=== PATIENT | male | born 1945 | race Caucasian/White ===

== ENCOUNTER 2018-02-20 20:30 | Inpatient (IN) | payer MEDICARE ==
[~2018-02-20] VITALS: Ht 185.4 cm; Wt 81.0 kg
[2018-02-20 20:37] VITALS: BP 119/71; PULSE 65; RESP 20; TEMP 97.4; O2SAT 94
[2018-02-20] MEDS ORDERED: METO50TA PO (20:54)
[2018-02-20] MEDS ORDERED: PLAV75TA29 PO (20:54)
[2018-02-20] MEDS ORDERED: LISI10TA3 PO (20:54)
[2018-02-20] MEDS ORDERED: NEXI40CA PO (20:54)
[2018-02-20] MEDS ORDERED: ASPI-516 CHEW (20:54)
[2018-02-20] MEDS ORDERED: SIMV40TA PO (20:54)
--- NOTE | 2018-02-20 21:29 | PD ---
HPI Chief Complaint: Hip Injury Time Seen by Provider: 21:16 Travel History International Travel<30 days: No Contact w/Intl Traveler<30days: No Traveled to known affect area: No History of Present Illness HPI 72-year-old male complains of left wrist pain and left hip pain. Patient states that he fell this evening. Patient denies loss of consciousness. Patient denies any headache on neck pain. Patient, and sharp pain localized to left wrist and left hip. Patient denies any chest pain or shortness of breath. Patient denies abdominal pain. Patient states that the left wrist pain and left hip pain is sharp pain. Patient states that the pain is worse with movement of the wrist and the hip joint. On a scale of 1-10 the pain is a 9. Patient states he has an abrasion to left forearm. Patient is up-to-date with TD booster. Patient started post left shoulder and left knee surgery in the past. 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 Patient is on Plavix. Last Plavix dose was this morning. Patient has history hypertension and hyperlipidemia. PFSH Past Medical History Hx Anticoagulant Therapy: Yes (PLAVIX) Cardiac Catheterization: Yes High Cholesterol: Yes Coronary Artery Disease: Yes GERD: Yes Hypertension: Yes Medical other: Yes Tetanus Vaccination: < 5 Years Influenza Vaccination: No Past Surgical History Cardiac Surgery: Yes (ENCARDECTOMY) Joint Replacement: Yes (LEFT KNEE/SHOULDER) Pacemaker: Yes Other Surgery: Yes Social History Alcohol Use: Yes (RARE) Tobacco Use: Yes (1/2 PPD) Substance Use: No Allergies-Medications (Allergen,Severity, Reaction): Coded Allergies: Penicillins (Verified Allergy, Unknown, " I BLOW UP ", 02/20/18) Uncoded Allergies: ADHESIVES (Adverse Reaction, Unknown, SKIN PEELING, 02/20/18) Reported Meds & Prescriptions Reported Meds & Active Scripts Active Reported Nexium (Esomeprazole DR) 40 Mg Capdr 40 Mg PO DAILY Aspirin 81 Mg Chew 81 Mg CHEW DAILY Lisinopril 10 Mg Tab 15 Mg PO DAILY Simvastatin 40 Mg Tab 40 Mg PO HS Metoprolol Tartrate 50 Mg Tab 50 Mg PO DIRECTED Plavix (Clopidogrel Bisulfate) 75 Mg Tab 75 Mg PO DAILY Review of Systems General / Constitutional: No: Fever Eyes: No: Visual changes HENT: No: Headaches Cardiovascular: No: Chest Pain or Discomfort Respiratory: No: Shortness of Breath Gastrointestinal: No: Abdominal Pain Genitourinary: No: Dysuria Musculoskeletal: Positive: Pain Skin: No Rash Neurologic: No: Weakness Psychiatric: No: Depression Endocrine: No: Polydipsia Hematologic/Lymphatic: No: Easy Bruising Physical Exam Narrative GENERAL: Well-nourished, well-developed patient. SKIN: Focused skin assessment warm/dry. HEAD: Normocephalic. EYES: No scleral icterus. No injection or drainage. NECK: Supple, trachea midline. No JVD or lymphadenopathy. CARDIOVASCULAR: Regular rate and rhythm without murmurs, gallops, or rubs. RESPIRATORY: Breath sounds equal bilaterally. No accessory muscle use. GASTROINTESTINAL: Abdomen soft, non-tender, nondistended. MUSCULOSKELETAL: patient has moderate tenderness in palpation of left wrist. Full range of motion of the fingers. Patient has moderate tenderness in palpation of the anterior aspect of the left hip joint. Limited range of motion the left hip secondary to pain. Sensory motor function distally intact. BACK: Nontender without obvious deformity. No CVA tenderness. Neurologic exam normal. Data Data Last Documented VS Vital Signs Date Time Temp Pulse Resp B/P (MAP) Pulse Ox O2 Delivery O2 Flow Rate FiO2 02/20/18 20:47 Room Air 02/20/18 20:37 97.4 65 20 119/71 (87) 94 Orders Orders Hip, Uni(Ap&Lat) W Ap Pelvis (02/20/18 21:21) Wrist, Complete ([id number]) (02/20/18 21:21) [facility] Medical Decision Making Medical Screen Exam Complete: Yes Emergency Medical Condition: Yes Interpretation(s) 22:01 PM. X-ray left hip show mildly displaced left femoral neck fracture. X- ray left wrist show possible dorsal triquetral avulsion fracture. Differential Diagnosis Differential diagnoses including sprain, fracture, dislocation. Narrative Course 72-year-old male with injury to left wrist and left hip. Status post fall. Normal saline solution 100 cc an hour. Diagnosis Primary Impression: Fracture of femoral neck, left Qualified Codes: S72.002A - Fracture of unspecified part of neck of left femur , initial encounter for closed fracture Additional Impression: Fracture of left carpal bone Qualified Codes: S62.115A - Nondisplaced fracture of triquetrum [cuneiform] bone, left wrist, initial encounter for closed fracture Admitting Information Admitting Physician Requests: Admit Ariel Green MD Feb 20, 2018 21:29
--- NOTE | 2018-02-20 21:57 | RADRPT ---
EXAM DATE/TIME: 02/20/2018 21:32 [facility] COMPARISON: No previous studies available for comparison. INDICATIONS : Left hip pain post fall. MEDICAL HISTORY : None. SURGICAL HISTORY : None. ENCOUNTER: Initial ACUITY: 1 day PAIN SCORE: 10/10 LOCATION: Left pelvis FINDINGS: Examination of the left hip was performed with AP Pelvis. There is a mildly displaced left femoral ne ck fracture. No dislocation. No other fractures are seen. CONCLUSION: 1. Mildly displaced left femoral neck fracture. Kenji Ace MD on February 20, 2018 at 21:51 Board Certified Radiologist. This report was verified electronically.
--- NOTE | 2018-02-20 21:59 | RADRPT ---
EXAM DATE/TIME: 02/20/2018 21:32 [facility] COMPARISON: No previous studies available for comparison. INDICATIONS : Left wrist pain post fall. MEDICAL HISTORY : None. SURGICAL HISTORY : None. ENCOUNTER: Initial ACUITY: 1 day PAIN SCORE: 4/10 LOCATION: Left upper extremity FINDINGS: On the lateral view there is a probable small avulsed bone fragment dorsally possibly of the triquetr um. No soft tissue swelling. No other fractures are seen. CONCLUSION: 1. Probable dorsal triquetral avulsion fracture only seen on the lateral view. Kenji Ace MD on February 20, 2018 at 21:55 Board Certified Radiologist. This report was verified electronically.
[2018-02-20] MEDS ORDERED: SODIUM CHLOR 0.9% 1000 ML INJ 1,000 ML IV SCH (22:15)
[2018-02-20] MEDS ORDERED: ONDANSETRON HCL 4 MG/2 ML VIAL IV PUSH ONE (22:15)
[2018-02-20] MEDS ORDERED: MORPHINE SULFATE 2 MG/ML SYRINGE IV PUSH ONE (22:15)
[2018-02-20 22:20] VITALS: O2SAT 95
[2018-02-20] MEDS ORDERED: BISACODYL 10 MG SUPP RECTAL PRN (22:30)
[2018-02-20] MEDS ORDERED: ACETAMINOPHEN 325 MG TAB PO PRN (22:30)
[2018-02-20] MEDS ORDERED: MAGNESIUM HYDROXIDE SUSP 30 ML CUP PO PRN (22:30)
[2018-02-20] MEDS ORDERED: ONDANSETRON HCL 4 MG/2 ML VIAL IVP PRN (22:30)
[2018-02-20] MEDS ORDERED: ACETAMINOPHEN/HYDROcodone 325 MG/5 MG TAB PO PRN (22:30)
[2018-02-20] MEDS ORDERED: LACTULOSE SYRUP 20 GM/30 ML CUP PO PRN (22:30)
[2018-02-20] MEDS ORDERED: SODIUM CHLORIDE 0.9% FLUSH 10 ML FLUSH IV FLUSH PRN (22:30)
[2018-02-20] MEDS ORDERED: SENNOSIDES 8.6 MG TAB PO PRN (22:30)
--- NOTE | 2018-02-20 22:34 | RADRPT ---
EXAM DATE/TIME: 02/20/2018 22:18 [facility] COMPARISON: No previous studies available for comparison. INDICATIONS : Evaluate for pneumonia, pneumothorax, or communicable disease. Pre op left hip. MEDICAL HISTORY : None. SURGICAL HISTORY : Pacemaker. Left total shoulder replacement ENCOUNTER: Initial ACUITY: 1 day PAIN SCORE: 9/10 LOCATION: Bilateral chest FINDINGS: A single view of the chest demonstrates the lungs to be symmetrically aerated without evidence of mas s, infiltrate or effusion. The cardiomediastinal contours are unremarkable except tortuous aorta. Pa cer leads in right atrium and right ventricle. Previous left shoulder joint replacement. CONCLUSION: 1. No acute findings. Pacer leads in right atrium and right ventricle. Kenji Ace MD on February 20, 2018 at 22:32 Board Certified Radiologist. This report was verified electronically.
[2018-02-20 22:35] VITALS: BP 182/81; PULSE 66; RESP 16; O2SAT 95
[2018-02-20 22:38] LABS: CHLORIDE 110 MEQ/L (98-107); SODIUM (NA) 142 MEQ/L (136-145)
[2018-02-20] MEDS: SODIUM CHLOR 0.9% 1000 ML INJ 1,000 ML IV SCH (22:38)
[2018-02-20 22:39] LABS: AUTOMATED NEUTROPHIL # 12.9 TH/MM3 (1.8-7.7); BASOPHIL # 0.4 TH/MM3 (0-0.2); EOSINOPHIL % 0.3 % (0.0-4.0); HEMATOCRIT 42.7 % (39.0-51.0); HEMOGLOBIN 14.6 GM/DL (13.0-17.0); LYMPH % 4.1 % (9.0-44.0); LYMPHOCYTE # 0.6 TH/MM3 (1.0-4.8); MEAN CELL VOLUME 89.9 FL (80.0-100.0); MEAN CORPUSCULAR HEMOGLOBIN 30.8 PG (27.0-34.0); MEAN CORPUSCULAR HGB CONC 34.2 % (32.0-36.0); MONO % 3.3 % (0.0-8.0); MONOCYTE # 0.5 TH/MM3 (0-0.9); NEUT % 89.3 % (16.0-70.0); PLATELET COUNT 170 TH/MM3 (150-450); RED BLOOD COUNT 4.75 MIL/MM3 (4.50-5.90); RED CELL DISTRIBUTION WIDTH 13.2 % (11.6-17.2); WHITE BLOOD COUNT 14.4 TH/MM3 (4.0-11.0)
[2018-02-20 22:43] LABS: ALBUMIN 3.5 GM/DL (3.4-5.0); BICARBONATE 25.1 MEQ/L (21.0-32.0); BLOOD UREA NITROGEN 24 MG/DL (7-18); GLUCOSE,RANDOM 175 MG/DL (74-106)
[2018-02-20 22:44] LABS: PROTHROMBIN TIME - PATIENT 10.4 SEC (9.8-11.6)
[2018-02-20 22:46] LABS: ALT (GPT) 20 U/L (12-78); AST (GOT) 17 U/L (15-37); GLOMERULAR FILTRATION RATE 59 ML/MIN (>89)
[2018-02-20 22:48] LABS: TOTAL BILIRUBIN ADULT 0.2 MG/DL (0.2-1.0); TOTAL PROTEIN 7.6 GM/DL (6.4-8.2)
[2018-02-20 22:49] LABS: ALKALINE PHOSPHATASE 145 U/L (45-117)
[2018-02-20 23:02] VITALS: BP 157/78; PULSE 60; RESP 16; O2SAT 94
[2018-02-21] MEDS ORDERED: MORPHINE SULFATE 2 MG/ML SYRINGE IV PUSH ONE (00:45)
[2018-02-21 01:00] LABS: BILIRUBIN, URINE NEG (NEG); BLOOD, URINE NEG (NEG); GLUCOSE,URINE NEG (NEG); KETONE, URINE NEG (NEG); NITRITE,URINE NEG (NEG); PH, URINE 5.5 (5.0-8.5); URINE COLOR YELLOW (YELLW/STRAW); URINE LEUKOCYTE ESTERASE NEG (NEG)
[2018-02-21 01:05] LABS: RBC, URINE 0-2 /hpf (0-3); SQUAMOUS EPITHELIAL CELL URINE 0-5 /hpf (0-5); WBC, URINE 0-2 /hpf (0-5)
[2018-02-21 01:10] VITALS: BP 156/80; PULSE 64; RESP 18; TEMP 97.6; O2SAT 96
[2018-02-21] MEDS: MORPHINE SULFATE 4 MG/ML INJ IV PUSH PRN ×5 (02:28→20:02)
[2018-02-21 02:35] VITALS: BP 148/70; PULSE 62; RESP 16; TEMP 97.2; O2SAT 94
--- NOTE | 2018-02-21 03:27 | HHI.HP ---
[facility] Primary Care Physician Non-Staff Admission Diagnosis Fracture left femoral neck. Evulsion fracture left carpal bone Diagnoses: Chief Complaint: Left hip and left wrist pain Travel History International Travel<30 Days: No Contact w/Intl Traveler <30 Da: No Traveled to Known Affected Are: No History of Present Illness 72-year-old male with a history of hyperlipidemia, GERD, bradycardia status post pacemaker and hypertension presented to the ED with complaints of left hip and left wrist pain status post fall. He states he was playing outside with his granddaughter and he tripped and fell landing on his left hip and wrist. He states the hip and wrist pain is throbbing, intermittent, 8/10, no radiation or associated symptoms, worse with movement better with morphine. He denies any chest pain, sob, fever or chills. Past Family Social History Past Medical History Hypertension Hyperlipidemia GERD Bradycardia Past Surgical History Left shoulder repair Left knee repair Endarterectomy Pacemaker Reported Medications Reported Meds & Active Scripts Active Reported Nexium (Esomeprazole DR) 40 Mg Capdr 40 Mg PO DAILY Aspirin 81 Mg Chew 81 Mg CHEW DAILY Lisinopril 10 Mg Tab 15 Mg PO DAILY Simvastatin 40 Mg Tab 40 Mg PO HS Metoprolol Tartrate 50 Mg Tab 50 Mg PO DIRECTED Plavix (Clopidogrel Bisulfate) 75 Mg Tab 75 Mg PO DAILY Allergies: Coded Allergies: Penicillins (Verified Allergy, Unknown, " I BLOW UP ", 02/20/18) Uncoded Allergies: ADHESIVES (Adverse Reaction, Unknown, SKIN PEELING, 02/20/18) Active Ordered Medications Current Medications Medications (Trade) Dose Ordered Sig/Reyes Route Start Time Stop Time Status Last Admin Sodium Chloride 1,000 ml @ 100 mls/hr Q10H IV 02/20/18 22:17 02/20/18 22:38 (NS Flush) 2 ml UNSCH PRN IV FLUSH 02/20/18 22:30 02/21/18 02:28 (NS Flush) 2 ml BID IV FLUSH 02/21/18 09:00 (Zofran Inj) 4 mg Q6H PRN IVP 02/20/18 22:30 (Tylenol) 650 mg Q6H PRN PO 02/20/18 22:30 ([place] 5-325 Mg) 1 tab Q4H PRN PO 02/20/18 22:30 (Morphine Inj) 2 mg Q3H PRN IV PUSH 02/20/18 22:30 02/21/18 02:28 (Melody-Colace) 1 tab BID PO 02/21/18 09:00 (Milk Of Magnesia Liq) 30 ml Q12H PRN PO 02/20/18 22:30 (Senokot) 17.2 mg Q12H PRN PO 02/20/18 22:30 (Dulcolax Supp) 10 mg DAILY PRN RECTAL 02/20/18 22:30 (Lactulose Liq) 30 ml DAILY PRN PO 02/20/18 22:30 (Lopressor) 50 mg DAILY PO 02/21/18 09:00 (Protonix) 40 mg DAILY PO 02/21/18 09:00 (Pravachol) 80 mg HS PO 02/21/18 21:00 Family History Patient denies any family history Social History Tobacco use: 1/2 PPD Alcohol use: rarely Illicit drug use: denies Physical Exam Vital Signs Vital Signs Date Time Temp Pulse Resp B/P (MAP) Pulse Ox O2 Delivery O2 Flow Rate FiO2 02/21/18 02:35 97.2 62 16 148/70 (96) 94 02/21/18 01:25 02/21/18 01:10 97.6 64 18 156/80 (105) 96 Room Air 02/21/18 01:00 18 02/21/18 00:11 16 02/20/18 23:16 Room Air 02/20/18 23:02 60 16 157/78 (104) 94 Room Air 02/20/18 22:35 66 16 182/81 (114) 95 Room Air 02/20/18 22:20 95 Room Air 02/20/18 20:47 Room Air 02/20/18 20:37 97.4 65 20 119/71 (87) 94 Physical Exam GENERAL: This is a well-nourished, well-developed patient, in no apparent distress. SKIN: No rashes, ecchymoses or lesions. Cool and dry. HEAD: Atraumatic. Normocephalic. EYES: Pupils equal round and reactive. ENT: Nose without bleeding, purulent drainage or septal hematoma. CARDIOVASCULAR: Regular rate and rhythm without murmurs, gallops, or rubs. RESPIRATORY: Clear to auscultation. Breath sounds equal bilaterally. No wheezes , rales, or rhonchi. GASTROINTESTINAL: Abdomen soft, non-tender, nondistended. MUSCULOSKELETAL: Left lower extremity and left wrist tender. NEUROLOGICAL: Awake and alert. Motor and sensory grossly within normal limits. Normal speech. Laboratory Laboratory Tests Test 02/20/18 22:24 02/21/18 00:45 White Blood Count 14.4 Red Blood Count 4.75 Hemoglobin 14.6 Hematocrit 42.7 Mean Corpuscular Volume 89.9 Mean Corpuscular Hemoglobin 30.8 Mean Corpuscular Hemoglobin Concent 34.2 Red Cell Distribution Width 13.2 Platelet Count 170 Mean Platelet Volume 9.0 Neutrophils (%) (Auto) 89.3 Lymphocytes (%) (Auto) 4.1 Monocytes (%) (Auto) 3.3 Eosinophils (%) (Auto) 0.3 Basophils (%) (Auto) 3.0 Neutrophils # (Auto) 12.9 Lymphocytes # (Auto) 0.6 Monocytes # (Auto) 0.5 Eosinophils # (Auto) 0.0 Basophils # (Auto) 0.4 CBC Comment DIFF FINAL Differential Comment Prothrombin Time 10.4 Prothromb Time International Ratio 1.0 Activated Partial Thromboplast Time 24.9 Blood Urea Nitrogen 24 Creatinine 1.20 Random Glucose 175 Total Protein 7.6 Albumin 3.5 Calcium Level 9.0 Alkaline Phosphatase 145 Aspartate Amino Transf (AST/SGOT) 17 Alanine Aminotransferase (ALT/SGPT) 20 Total Bilirubin 0.2 Sodium Level 142 Potassium Level 4.0 Chloride Level 110 Carbon Dioxide Level 25.1 Anion Gap 7 Estimat Glomerular Filtration Rate 59 Urine Color YELLOW Urine Turbidity CLEAR Urine pH 5.5 Urine Specific [place] 1.025 Urine Protein NEG Urine Glucose (UA) NEG Urine Ketones NEG Urine Occult Blood NEG Urine Nitrite NEG Urine Bilirubin NEG Urine Urobilinogen 0.2 Urine Leukocyte Esterase NEG Urine RBC 0-2 Urine WBC 0-2 Urine Squamous Epithelial Cells 0-5 Urine Bacteria NONE Microscopic Urinalysis Comment CULT NOT INDICATED Result Diagram: 02/20/18222302/20/182223 Imaging Last Impressions Chest X-Ray 02/20/182212 Signed Impressions: Service Date/Time: Tuesday, February 20, 2018 22:18 - CONCLUSION: 1. No acute findings. Pacer leads in right atrium and right ventricle. Kenji Ace MD Wrist X-Ray 02/20/182120 Signed Impressions: Service Date/Time: Tuesday, February 20, 2018 21:32 - CONCLUSION: 1. Probable dorsal triquetral avulsion fracture only seen on the lateral view. Kenji Ace MD Hip and Pelvis X-Ray 02/20/182120 Signed Impressions: Service Date/Time: Tuesday, February 20, 2018 21:32 - CONCLUSION: 1. Mildly displaced left femoral neck fracture. Kenji Ace MD Caprini VTE Risk Assessment Caprini VTE Risk Assessment: No/Low Risk (score <= 1) Caprini Risk Assessment Model Point Value = 1 Point Value = 2 Point Value = 3 Point Value = 5 Age 41-60 Minor surgery BMI > 25 kg/m2 Swollen legs Varicose veins or History of unexplained or recurrent spontaneous Oral contraceptives or hormone replacement Sepsis (< 1 month) Serious lung disease, including pneumonia (< 1 month) Abnormal pulmonary function Acute myocardial infarction Congestive heart failure (< 1 month) History of inflammatory bowel disease Medical patient at bed rest Age 61-74 Arthroscopic surgery Major open surgery (> 45 min) Laparoscopic surgery (> 45 min) Malignancy Confined to bed (> 72 hours) Immobilizing plaster cast Central venous access Age >= 75 History of VTE Family history of VTE Factor V Leiden Prothrombin 32066H Lupus anticoagulant Anticardiolipin antibodies Elevated serum homocysteine Heparin-induced thrombocytopenia Other congenital or acquired thrombophilia Stroke (< 1 month) Elective arthroplasty Hip, pelvis, or leg fracture Acute spinal cord injury (< 1 month) Prophylaxis Regimen Total Risk Factor Score Risk Level Prophylaxis Regimen 0-1 Low Early ambulation 2 Moderate Order ONE of the following: *Sequential Compression Device (SCD) *Heparin 5000 units SQ BID 3-4 Higher Order ONE of the following medications: *Heparin 5000 units SQ TID *Enoxaparin/Lovenox 40 mg SQ daily (WT < 150 kg, CrCl > 30 mL/min) *Enoxaparin/Lovenox 30 mg SQ daily (WT < 150 kg, CrCl > 10-29 mL/min) *Enoxaparin/Lovenox 30 mg SQ BID (WT < 150 kg, CrCl > 30 mL/min) AND/OR *Sequential Compression Device (SCD) 5 or more Highest Order ONE of the following medications: *Heparin 5000 units SQ TID (Preferred with Epidurals) *Enoxaparin/Lovenox 40 mg SQ daily (WT < 150 kg, CrCl > 30 mL/min) *Enoxaparin/Lovenox 30 mg SQ daily (WT < 150 kg, CrCl > 10-29 mL/min) *Enoxaparin/Lovenox 30 mg SQ BID (WT < 150 kg, CrCl > 30 mL/min) AND *Sequential Compression Device (SCD) Assessment and Plan Problem List: (1) Fracture of femoral neck, left ICD Code: S72.002A - Fracture of unspecified part of neck of left femur, initial encounter for closed fracture Status: Acute (2) Fracture of left carpal bone ICD Code: S62.102A - Fracture of unspecified carpal bone, left wrist, initial encounter for closed fracture Status: Acute Assessment and Plan 72-year-old male with a history of hyperlipidemia, GERD, bradycardia status post pacemaker and hypertension presented to the ED with complaints of left hip and left wrist pain status post fall. Left femoral neck fracture and left wrist fracture Hip x-ray reviewed and shows mildly displaced left femoral neck fracture. Wrist x-ray reviewed and shows possible dorsal triquetral avulsion fracture. -Consult orthopedic -Pain management with IV morphine and p.o. [place] -N.p.o. Hyperlipidemia -Resume home pravastatin -Heart healthy diet when no longer n.p.o. Hypertension -Resume home medications metoprolol and lisinopril -Monitor vitals Symptomatic bradycardia, chronic status post pacemaker -Monitor telemetry -Hold Plavix and aspirin until after surgery DVT prophylaxis: SCDs Discussed Condition With Patient and RN Physician Certification 2 Midnight Certification Type: Admission for Inpatient Services Order for Inpatient Services The services are ordered in accordance with Medicare regulations or non- Medicare payer requirements, as applicable. In the case of services not specified as inpatient-only, they are appropriately provided as inpatient services in accordance with the 2-midnight benchmark. Estimated LOS (days): 2 days is the estimated time the patient will need to remain in the hospital, assuming treatment plan goals are met and no additional complications. Post-Hospital Plan: Home Problem Qualifiers (1) Fracture of femoral neck, left: Qualified Codes: S72.002A - Fracture of unspecified part of neck of left femur , initial encounter for closed fracture (2) Fracture of left carpal bone: Qualified Codes: S62.115A - Nondisplaced fracture of triquetrum [cuneiform] bone, left wrist, initial encounter for closed fracture Sheela Mariano Feb 21, 2018 03:27
[2018-02-21 06:04] LABS: ALBUMIN 3.3 GM/DL (3.4-5.0); AST (GOT) 16 U/L (15-37); BICARBONATE 22.6 MEQ/L (21.0-32.0); BLOOD UREA NITROGEN 26 MG/DL (7-18); CALCIUM 8.6 MG/DL (8.5-10.1); CHLORIDE 112 MEQ/L (98-107); CREATININE 1.12 MG/DL (0.60-1.30); GLOMERULAR FILTRATION RATE 64 ML/MIN (>89); GLUCOSE,RANDOM 128 MG/DL (74-106); SODIUM (NA) 141 MEQ/L (136-145)
[2018-02-21 06:05] LABS: ALT (GPT) 16 U/L (12-78)
[2018-02-21 06:07] LABS: ALKALINE PHOSPHATASE 142 U/L (45-117); TOTAL BILIRUBIN ADULT 0.3 MG/DL (0.2-1.0); TOTAL PROTEIN 6.9 GM/DL (6.4-8.2)
[2018-02-21 07:54] LABS: AUTOMATED NEUTROPHIL # 8.7 TH/MM3 (1.8-7.7); BASOPHIL % 0.2 % (0.0-2.0); EOSINOPHIL % 0.1 % (0.0-4.0); HEMATOCRIT 38.2 % (39.0-51.0); HEMOGLOBIN 13.1 GM/DL (13.0-17.0); LYMPH % 8.6 % (9.0-44.0); LYMPHOCYTE # 0.9 TH/MM3 (1.0-4.8); MEAN CELL VOLUME 90.3 FL (80.0-100.0); MEAN CORPUSCULAR HEMOGLOBIN 31.1 PG (27.0-34.0); MEAN CORPUSCULAR HGB CONC 34.4 % (32.0-36.0); MEAN PLATELET VOLUME 9.7 FL (7.0-11.0); MONOCYTE # 0.8 TH/MM3 (0-0.9); NEUT % 83.1 % (16.0-70.0); PLATELET COUNT 147 TH/MM3 (150-450); RED BLOOD COUNT 4.23 MIL/MM3 (4.50-5.90); RED CELL DISTRIBUTION WIDTH 13.8 % (11.6-17.2); WHITE BLOOD COUNT 10.5 TH/MM3 (4.0-11.0)
[2018-02-21 08:00] VITALS: BP 124/64; PULSE 64; RESP 18; TEMP 97.8
[2018-02-21] MEDS: SODIUM CHLORIDE 0.9% FLUSH 10 ML FLUSH IV FLUSH SCH ×2 (08:26→20:03)
[2018-02-21] MEDS: DOCUSATE SODIUM 50 MG/SENNA 8.6 MG TAB PO SCH ×2 (08:26→20:00)
[2018-02-21] MEDS: PANTOPRAZOLE SOD 40 MG DELAYED RELEASE TAB PO SCH (08:26)
[2018-02-21] MEDS: LISINOPRIL 10 MG TAB PO SCH (08:26)
[2018-02-21] MEDS: METOPROLOL TARTRATE 50 MG TAB PO SCH (08:26)
[2018-02-21] MEDS: SODIUM CHLOR 0.9% 1000 ML INJ 1,000 ML IV SCH (08:27)
--- NOTE | 2018-02-21 08:35 | RADRPT ---
EXAM DATE/TIME: 02/21/2018 07:31 [facility] COMPARISON: HIP LEFT (AP&LAT 2/3VWS) W AP PELVIS, February 20, 2018, 21:32. INDICATIONS : Left hip pain from fall. RADIATION DOSE: 32.10 CTDIvol (mGy) MEDICAL HISTORY : Hypertension. SURGICAL HISTORY : None. ENCOUNTER: Initial ACUITY: 1 day PAIN SCALE: 6/10 LOCATION: Left hip area. TECHNIQUE: Volumetric scanning of the hip was performed. Using automated exposure control and adjustment of the mA and/or kV according to patient size, radiation dose was kept as low as reasonably achievable to o btain optimal diagnostic quality images. DICOM format image data is available electronically for rev iew and comparison. FINDINGS: Again seen is the left femoral neck fracture described on 02/21/2008. Femoral head remains aligned wi th the acetabulum. There is deformity about the left hemipelvis but I cannot confirm in the other fr acture. LG of this deformity is not apparent. The pelvis is intact. Mild dilatation aorta 3.3 cm. Right h Theip unremarkable. Diverticuli in the sigmoid colon. CONCLUSION: Femoral neck fracture on the left. No other fractures are appreciated in spite of th e deformity.. Bud Chung MD FACR on February 21, 2018 at 8:30 Board Certified Radiologist. This report was verified electronically.
--- NOTE | 2018-02-21 10:52 | PD.CONS ---
HPI Service Orthopedic Surgeons Consult Requested By Reason for Consult Left hip fracture Primary Care Physician Non-Staff Admission Diagnosis Fracture left femoral neck. Evulsion fracture left carpal bone Diagnoses: (1) Fracture of femoral neck, left Diagnosis: Principal (2) Fracture of left carpal bone Diagnosis: Secondary Chief Complaint: Left hip pain and left wrist pain History of Present Illness 72-year-old male with a history of hyperlipidemia, GERD, bradycardia status post pacemaker and hypertension presented to the ED with complaints of left hip and left wrist pain status post fall. He states he was playing outside with his granddaughter and he tripped and fell landing on his left hip and wrist. He states the hip and wrist pain is throbbing, intermittent, 8/10, no radiation or associated symptoms, worse with movement better with morphine. He denies any chest pain, sob, fever. He denies any other extremity injury. He denies loss of consciousness. Review of Systems Constitutional: DENIES: Fever Endocrine: DENIES: Polyuria Eyes: DENIES: Blurred vision Ears, nose, mouth, throat: DENIES: Throat pain Respiratory: DENIES: Cough Cardiovascular: DENIES: Chest pain Gastrointestinal: DENIES: Abdominal pain Genitourinary: DENIES: Urinary incontinence Musculoskeletal: COMPLAINS OF: Joint pain, Joint Swelling Integumentary: DENIES: Rash Hematologic/lymphatic: DENIES: Bruising Immunologic/allergic: DENIES: Eczema Neurologic: DENIES: Abnormal gait Psychiatric: DENIES: Anxiety Past Family Social History Past Medical History Hypertension Hyperlipidemia GERD Bradycardia Past Surgical History Left shoulder repair Left knee repair Endarterectomy Pacemaker Reported Medications Of note, on Plavix Allergies: Coded Allergies: Penicillins (Verified Allergy, Unknown, " I BLOW UP ", 02/20/18) Uncoded Allergies: ADHESIVES (Adverse Reaction, Unknown, SKIN PEELING, 02/20/18) Active Ordered Medications Current Medications Medications (Trade) Dose Ordered Sig/Reyes Route Start Time Stop Time Status Last Admin Sodium Chloride 1,000 ml @ 100 mls/hr Q10H IV 02/20/18 22:17 02/21/18 08:27 (NS Flush) 2 ml UNSCH PRN IV FLUSH 02/20/18 22:30 02/21/18 02:28 (NS Flush) 2 ml BID IV FLUSH 02/21/18 09:00 02/21/18 08:26 (Zofran Inj) 4 mg Q6H PRN IVP 02/20/18 22:30 (Tylenol) 650 mg Q6H PRN PO 02/20/18 22:30 ([place] 5-325 Mg) 1 tab Q4H PRN PO 02/20/18 22:30 (Morphine Inj) 2 mg Q3H PRN IV PUSH 02/20/18 22:30 02/21/18 09:46 (Melody-Colace) 1 tab BID PO 02/21/18 09:00 02/21/18 08:26 (Milk Of Magnesia Liq) 30 ml Q12H PRN PO 02/20/18 22:30 (Senokot) 17.2 mg Q12H PRN PO 02/20/18 22:30 (Dulcolax Supp) 10 mg DAILY PRN RECTAL 02/20/18 22:30 (Lactulose Liq) 30 ml DAILY PRN PO 02/20/18 22:30 (Lopressor) 50 mg DAILY PO 02/21/18 09:00 02/21/18 08:26 (Protonix) 40 mg DAILY PO 02/21/18 09:00 02/21/18 08:26 (Pravachol) 80 mg HS PO 02/21/18 21:00 (Prinivil) 15 mg DAILY PO 02/21/18 09:00 02/21/18 08:26 Reported Meds & Active Scripts Active Reported Nexium (Esomeprazole DR) 40 Mg Capdr 40 Mg PO DAILY Aspirin 81 Mg Chew 81 Mg CHEW DAILY Lisinopril 10 Mg Tab 15 Mg PO DAILY Simvastatin 40 Mg Tab 40 Mg PO HS Metoprolol Tartrate 50 Mg Tab 50 Mg PO DIRECTED Plavix (Clopidogrel Bisulfate) 75 Mg Tab 75 Mg PO DAILY Family History Patient denies any family history Social History Tobacco use: 1/2 PPD Alcohol use: rarely Illicit drug use: denies Physical Exam Vital Signs Vital Signs Date Time Temp Pulse Resp B/P (MAP) Pulse Ox O2 Delivery O2 Flow Rate FiO2 02/21/18 08:00 97.8 64 18 124/64 (84) 02/21/18 02:35 97.2 62 16 148/70 (96) 94 02/21/18 01:25 02/21/18 01:10 97.6 64 18 156/80 (105) 96 Room Air 02/21/18 01:00 18 02/21/18 00:11 16 02/20/18 23:16 Room Air 02/20/18 23:02 60 16 157/78 (104) 94 Room Air 02/20/18 22:35 66 16 182/81 (114) 95 Room Air 02/20/18 22:20 95 Room Air 02/20/18 20:47 Room Air 02/20/18 20:37 97.4 65 20 119/71 (87) 94 Physical Exam Awake, alert, no acute distress Normocephalic Pupils equal No JVD Moist mucous membranes Nonlabored respirations Regular rate Soft nontender abdomen Left lower extremity: Positive logroll. Unable to assess hip and knee range of motion due to discomfort. Neurovascularly intact distally with positive EHL, FHL, dorsiflexion and plantarflexion. Sensation intact. Brisk cap refill. Left upper extremity: Splint in place over the wrist. Patient is able to wiggle his fingers and has sensation intact over the fingers. Brisk cap refill. Right upper and lower extremities: No significant tenderness palpation of visible deformities. Full active range of motion and strength throughout. Sensation intact. Brisk cap refill. No rash Normal affect Laboratory Laboratory Tests Test 02/20/18 22:24 02/21/18 00:45 02/21/18 05:25 02/21/18 06:52 White Blood Count 14.4 10.5 Red Blood Count 4.75 4.23 Hemoglobin 14.6 13.1 Hematocrit 42.7 38.2 Mean Corpuscular Volume 89.9 90.3 Mean Corpuscular Hemoglobin 30.8 31.1 Mean Corpuscular Hemoglobin Concent 34.2 34.4 Red Cell Distribution Width 13.2 13.8 Platelet Count 170 147 Mean Platelet Volume 9.0 9.7 Neutrophils (%) (Auto) 89.3 83.1 Lymphocytes (%) (Auto) 4.1 8.6 Monocytes (%) (Auto) 3.3 8.0 Eosinophils (%) (Auto) 0.3 0.1 Basophils (%) (Auto) 3.0 0.2 Neutrophils # (Auto) 12.9 8.7 Lymphocytes # (Auto) 0.6 0.9 Monocytes # (Auto) 0.5 0.8 Eosinophils # (Auto) 0.0 0.0 Basophils # (Auto) 0.4 0.0 CBC Comment DIFF FINAL DIFF FINAL Differential Comment Prothrombin Time 10.4 Prothromb Time International Ratio 1.0 Activated Partial Thromboplast Time 24.9 Blood Urea Nitrogen 24 26 Creatinine 1.20 1.12 Random Glucose 175 128 Total Protein 7.6 6.9 Albumin 3.5 3.3 Calcium Level 9.0 8.6 Alkaline Phosphatase 145 142 Aspartate Amino Transf (AST/SGOT) 17 16 Alanine Aminotransferase (ALT/SGPT) 20 16 Total Bilirubin 0.2 0.3 Sodium Level 142 141 Potassium Level 4.0 4.3 Chloride Level 110 112 Carbon Dioxide Level 25.1 22.6 Anion Gap 7 6 Estimat Glomerular Filtration Rate 59 64 Urine Color YELLOW Urine Turbidity CLEAR Urine pH 5.5 Urine Specific [place] 1.025 Urine Protein NEG Urine Glucose (UA) NEG Urine Ketones NEG Urine Occult Blood NEG Urine Nitrite NEG Urine Bilirubin NEG Urine Urobilinogen 0.2 Urine Leukocyte Esterase NEG Urine RBC 0-2 Urine WBC 0-2 Urine Squamous Epithelial Cells 0-5 Urine Bacteria NONE Microscopic Urinalysis Comment CULT NOT INDICATED Result Diagram: 02/21/18 0652 02/21/18 0525 Imaging Last 48 hours Impressions Lower Extremity CT 02/21/18 0000 Signed Impressions: Service Date/Time: Wednesday, February 21, 2018 07:31 - CONCLUSION: Femoral neck fracture on the left. No other fractures are appreciated in spite of the deformity.. Bud Chung MD FACR Chest X-Ray 02/20/182212 Signed Impressions: Service Date/Time: Tuesday, February 20, 2018 22:18 - CONCLUSION: 1. No acute findings. Pacer leads in right atrium and right ventricle. Kenji Ace MD Wrist X-Ray 02/20/182120 Signed Impressions: Service Date/Time: Tuesday, February 20, 2018 21:32 - CONCLUSION: 1. Probable dorsal triquetral avulsion fracture only seen on the lateral view. Kenji Ace MD Hip and Pelvis X-Ray 02/20/182120 Signed Impressions: Service Date/Time: Darvin, February 20, 2018 21:32 - CONCLUSION: 1. Mildly displaced left femoral neck fracture. Kenji Ace MD Assessment & Plan Assessment and Plan 72-year-old gentleman with displaced left femoral neck subcapital fracture Options of management were discussed with the patient. Given he does have a displaced subcapital femoral neck fracture, I recommended operative intervention in the form of a left hip hemiarthroplasty. Risks of surgery including but not limited to: Infection, hardware malposition or failure, hip instability, persistent hip pain and/or stiffness/weakness, neurovascular injury , possible need for further surgery, periprosthetic fracture, and other unforeseen complications were discussed with the patient. At this time patient is taking Plavix at home with his last dose yesterday. Would recommend at least 48-72 hours off Plavix prior to surgical intervention. Patient does have pacemaker in place and may require cardiology clearance prior to surgery. Patient can eat and drink today from orthopedic standpoint surgery at the earliest would be tomorrow versus Friday. Eri Jim MD Feb 21, 2018 10:52
[2018-02-21 12:00] VITALS: BP 140/74; PULSE 61; RESP 17; TEMP 97.4; O2SAT 92
[2018-02-21] MEDS: NICOTINE 14 MG/24 HR PATCH T-DERMAL SCH (12:26)
[2018-02-21 16:00] VITALS: BP 142/75; PULSE 59; RESP 17; TEMP 97.3; O2SAT 93
--- NOTE | 2018-02-21 16:30 | EKG ---
Date Performed: 02/20/2018 Time Performed: 22:23:25 PTAGE: 72 years EKG: ELECTRONIC ATRIAL PACEMAKER LEFT ANTERIOR FASCICULAR BLOCK LEFT VENTRICULAR HYPERTROPHY AND ST-T CHANGE POSSIBLE SEPTAL MYOCARDIAL INFARCTION ABNORMAL ECG NO PREVIOUS TRACING DOCTOR: Kristina Gregorio Interpretating Date/Time 02/21/2018 16:28:52
--- NOTE | 2018-02-21 17:20 | HHI.PR ---
Addendum to Inpatient Note Addendum Reason: Additional Documentation Additional Information The pt was getting his left arm bandaged by hand surgery. The pt said his pain control could be better. He understood that he may go for surgery in the next day or two. Orthopedic surgery consult appreciated. Continue pain control. PT. Surgery per ortho. Smoking cessation instruction provided. Nicotine patch ordered. Raudel Scott DO Feb 21, 2018 17:20
[2018-02-21] MEDS: ACETAMINOPHEN/HYDROcodone 325 MG/10 MG TAB PO PRN (17:31)
[2018-02-21 20:00] VITALS: BP 112/54; PULSE 60; RESP 17; TEMP 98.9; O2SAT 96
[2018-02-21] MEDS: PRAVASTATIN SOD 80 MG TAB PO SCH (20:00)
[2018-02-22] VITALS: BP 138/76; PULSE 82; RESP 18; TEMP 98; O2SAT 97
[2018-02-22] MEDS: ACETAMINOPHEN/HYDROcodone 325 MG/10 MG TAB PO PRN ×4 (03:30→20:35)
[2018-02-22 08:00] VITALS: BP 153/74; PULSE 80; RESP 17; TEMP 97.2; O2SAT 92
--- NOTE | 2018-02-22 08:48 | PD.ORT.PN ---
Subjective Subjective Remarks Patient sitting up in bed eating breakfast. Objective Vitals Vital Signs Date Time Temp Pulse Resp B/P (MAP) Pulse Ox O2 Delivery O2 Flow Rate FiO2 02/22/18 00:00 98.0 82 18 138/76 (96) 97 02/21/18 20:00 98.9 60 17 112/54 (73) 96 02/21/18 16:00 97.3 59 17 142/75 (97) 93 02/21/18 12:00 97.4 61 17 140/74 (96) 92 I/O 02/21/18 02/21/18 02/21/18 02/22/18 02/22/18 02/22/18 07:00 15:00 23:00 07:00 15:00 23:00 Intake Total 2242 ml 760 ml Output Total 350 ml 500 ml 1000 ml Balance -350 ml 1742 ml -240 ml Intake Oral 1080 ml 760 ml IV Total 1162 ml Output Urine Total 350 ml 500 ml 1000 ml # Voids 1 4 # Bowel Movements 0 Result Diagram: 02/21/18 0652 02/21/18 0525 Objective Remarks Awake, alert, no acute distress Left lower externally: Positive logroll with discomfort with any range of motion. Neurovascularly intact distally. Negative Homans. Brisk cap refill. Assessment & Plan Assessment and Plan 72-year-old gentleman with displaced left femoral neck subcapital fracture Options of management were discussed with the patient. Given he does have a displaced subcapital femoral neck fracture, I recommended operative intervention in the form of a left hip hemiarthroplasty. Risks of surgery including but not limited to: Infection, hardware malposition or failure, hip instability, persistent hip pain and/or stiffness/weakness, neurovascular injury , possible need for further surgery, periprosthetic fracture, and other unforeseen complications were discussed with the patient. At this time patient is taking Plavix at home with his last dose Friday. Given patient is currently eating breakfast, will defer surgery until tomorrow. I have placed an n.p.o. order for midnight. Plan will be for surgery tomorrow either by Dr. Ballesteros or myself. Eri Jim MD Feb 22, 2018 08:48
[2018-02-22] MEDS: SODIUM CHLORIDE 0.9% FLUSH 10 ML FLUSH IV FLUSH SCH ×2 (09:17→20:36)
[2018-02-22] MEDS: NICOTINE 14 MG/24 HR PATCH T-DERMAL SCH (09:18)
[2018-02-22] MEDS: PANTOPRAZOLE SOD 40 MG DELAYED RELEASE TAB PO SCH (09:18)
[2018-02-22] MEDS: DOCUSATE SODIUM 50 MG/SENNA 8.6 MG TAB PO SCH ×2 (09:19→20:33)
[2018-02-22] MEDS: LISINOPRIL 10 MG TAB PO SCH (09:19)
[2018-02-22] MEDS: METOPROLOL TARTRATE 50 MG TAB PO SCH (09:19)
[2018-02-22] MEDS: REMOVE OLD PATCH T-DERMAL SCH (09:20)
[2018-02-22] MEDS: MORPHINE SULFATE 4 MG/ML INJ IV PUSH PRN ×2 (10:31→17:25)
--- NOTE | 2018-02-22 11:54 | HHI.PR ---
Subjective Remarks The patient stated that his IV came out. He says the pills are not working that well for pain control. He is trying to order lunch. He said his left arm feels fine. He was anticipating surgery tomorrow. Discussed with nursing. Objective Vitals Vital Signs Date Time Temp Pulse Resp B/P (MAP) Pulse Ox O2 Delivery O2 Flow Rate FiO2 02/22/18 08:00 97.2 80 17 153/74 (100) 92 02/22/18 00:00 98.0 82 18 138/76 (96) 97 02/21/18 20:00 98.9 60 17 112/54 (73) 96 02/21/18 16:00 97.3 59 17 142/75 (97) 93 02/21/18 12:00 97.4 61 17 140/74 (96) 92 I/O 02/21/18 02/21/18 02/21/18 02/22/18 02/22/18 02/22/18 07:00 15:00 23:00 07:00 15:00 23:00 Intake Total 2242 ml 760 ml Output Total 350 ml 500 ml 1000 ml Balance -350 ml 1742 ml -240 ml Intake Oral 1080 ml 760 ml IV Total 1162 ml Output Urine Total 350 ml 500 ml 1000 ml # Voids 1 4 # Bowel Movements 0 Result Diagram: 02/21/18 0652 02/21/18 0525 Imaging Last Impressions Lower Extremity CT 02/21/18 0000 Signed Impressions: Service Date/Time: Wednesday, February 21, 2018 07:31 - CONCLUSION: Femoral neck fracture on the left. No other fractures are appreciated in spite of the deformity.. Bud Chung MD FACR Chest X-Ray 02/20/182212 Signed Impressions: Service Date/Time: Tuesday, February 20, 2018 22:18 - CONCLUSION: 1. No acute findings. Pacer leads in right atrium and right ventricle. Kenji Ace MD Wrist X-Ray 02/20/182120 Signed Impressions: Service Date/Time: Tuesday, February 20, 2018 21:32 - CONCLUSION: 1. Probable dorsal triquetral avulsion fracture only seen on the lateral view. Kenji Ace MD Hip and Pelvis X-Ray 02/20/182120 Signed Impressions: Service Date/Time: Tuesday, February 20, 2018 21:32 - CONCLUSION: 1. Mildly displaced left femoral neck fracture. Kenji Ace MD Objective Remarks GENERAL: This is a well-nourished, well-developed patient, in no apparent distress. SKIN: No rashes, ecchymoses or lesions. Cool and dry. HEAD: Atraumatic. Normocephalic. EYES: Pupils equal round and reactive. ENT: Nose without bleeding, purulent drainage or septal hematoma. CARDIOVASCULAR: Regular rate and rhythm without murmurs, gallops, or rubs. RESPIRATORY: Clear to auscultation. Breath sounds equal bilaterally. No wheezes , rales, or rhonchi. GASTROINTESTINAL: Abdomen soft, non-tender, nondistended. MUSCULOSKELETAL: Left arm bandaged. No lower extremity edema. NEUROLOGICAL: Awake and alert. Motor and sensory grossly within normal limits. Normal speech. Medications and IVs Current Medications Medications (Trade) Dose Ordered Sig/Reyes Route Start Time Stop Time Status Last Admin (NS Flush) 2 ml UNSCH PRN IV FLUSH 02/20/18 22:30 02/21/18 02:28 (NS Flush) 2 ml BID IV FLUSH 02/21/18 09:00 02/22/18 09:17 (Zofran Inj) 4 mg Q6H PRN IVP 02/20/18 22:30 (Tylenol) 650 mg Q6H PRN PO 02/20/18 22:30 ([place] 5-325 Mg) 1 tab Q4H PRN PO 02/20/18 22:30 02/21/18 12:26 (Melody-Colace) 1 tab BID PO 02/21/18 09:00 02/22/18 09:19 (Milk Of Magnesia Liq) 30 ml Q12H PRN PO 02/20/18 22:30 (Senokot) 17.2 mg Q12H PRN PO 02/20/18 22:30 (Dulcolax Supp) 10 mg DAILY PRN RECTAL 02/20/18 22:30 (Lactulose Liq) 30 ml DAILY PRN PO 02/20/18 22:30 (Lopressor) 50 mg DAILY PO 02/21/18 09:00 02/22/18 09:19 (Protonix) 40 mg DAILY PO 02/21/18 09:00 02/22/18 09:18 (Pravachol) 80 mg HS PO 02/21/18 21:00 02/21/18 20:00 (Prinivil) 15 mg DAILY PO 02/21/18 09:00 02/22/18 09:19 (Habitrol 14 Mg Patch.24 Hr) 1 patch DAILY T-DERMAL 02/21/18 11:45 02/22/18 09:18 Miscellaneous Information 1 DAILY T-DERMAL 02/22/18 09:00 02/22/18 09:20 (Morphine Inj) 4 mg Q4H PRN IV PUSH 02/21/18 17:30 02/22/18 10:31 ([place] 10-325 Mg) 1 tab Q4H PRN PO 02/21/18 17:30 02/22/18 09:19 A/P Problem List: (1) Fracture of femoral neck, left ICD Code: S72.002A - Fracture of unspecified part of neck of left femur, initial encounter for closed fracture Status: Acute (2) Fracture of left carpal bone ICD Code: S62.102A - Fracture of unspecified carpal bone, left wrist, initial encounter for closed fracture Status: Acute Assessment and Plan Left femoral neck fracture and left wrist fracture Hip x-ray reviewed and showed mildly displaced left femoral neck fracture. Confirmed on CT. Wrist x-ray reviewed and shows possible dorsal triquetral avulsion fracture. Orthopedic and hand surgery consults appreciated. -orthopedic planning on surgery 02/23. - Pain management with IV morphine and p.o. [place] with a bowel regimen. - N.p.o. after midnight. - incentive spirometry. Hypertension Relatively well controlled. - Resume home medications metoprolol and lisinopril. - pain control. Symptomatic bradycardia Status post pacemaker. - Monitor telemetry. - Hold Plavix and aspirin until cleared by surgery. Hyperglycemia May be a stress reaction. - Check an A1c. DVT prophylaxis: SCDs Problem Qualifiers (1) Fracture of femoral neck, left: Qualified Codes: S72.002A - Fracture of unspecified part of neck of left femur , initial encounter for closed fracture (2) Fracture of left carpal bone: Qualified Codes: S62.115A - Nondisplaced fracture of triquetrum [cuneiform] bone, left wrist, initial encounter for closed fracture Raudel Scott DO Feb 22, 2018 11:54
[2018-02-22 12:00] VITALS: BP 170/77; PULSE 61; RESP 17; TEMP 97.1; O2SAT 94
[2018-02-22 13:44] LABS: HEMOGLOBIN A1C 5.7 % (4.3-6.0)
[2018-02-22 16:00] VITALS: BP 147/68; PULSE 84; RESP 17; TEMP 97.6; O2SAT 93
[2018-02-22] MEDS ORDERED: LACTATED RINGER'S 1000 ML IV PRN (18:15)
[2018-02-22] MEDS ORDERED: METOPROLOL TARTRATE 25 MG TAB PO PRN (18:15)
[2018-02-22] MEDS ORDERED: POVIDONE IODINE 5% (ANTISEPSIS KIT) 4 APPLICATIONS EACH NARE PRN (18:15)
[2018-02-22] MEDS ORDERED: SODIUM CHLORID 0.9% 500 ML IV PRN (18:15)
[2018-02-22] MEDS ORDERED: INSULIN HUMAN REGULAR 1,000 UNITS/10 ML VIAL SQ PRN (18:15)
[2018-02-22] MEDS ORDERED: CHLORHEXIDINE GLUCONATE 2 % 1 PACK (2 CLOTHS) TOPICAL PRN (18:15)
[2018-02-22 20:00] VITALS: BP 169/77; PULSE 61; RESP 20; TEMP 98.1; O2SAT 98
[2018-02-22] MEDS: PRAVASTATIN SOD 80 MG TAB PO SCH (20:33)
[2018-02-23] VITALS: BP 158/75; PULSE 74; RESP 20; TEMP 98.1; O2SAT 96
[2018-02-23] MEDS: ACETAMINOPHEN/HYDROcodone 325 MG/10 MG TAB PO PRN (04:42)
[2018-02-23] MEDS: METOPROLOL TARTRATE 50 MG TAB PO SCH (07:11)
[2018-02-23 08:00] VITALS: BP 134/68; PULSE 68; RESP 16; TEMP 97.9; O2SAT 93
[2018-02-23] MEDS ORDERED: VANCOMYCIN HCL 1000 MG VIAL ONE (08:25)
[2018-02-23] MEDS ORDERED: GENTAMICIN SULFATE 80 MG/2 ML VIAL ONE (08:25)
[2018-02-23] MEDS ORDERED: SODIUM CHLOR 0.9% 250 ML INJ 250 ML ONE (08:26)
[2018-02-23] MEDS ORDERED: CLINDAMYCIN PHOS 600 MG/4 ML VIAL ONE (08:44)
[2018-02-23] MEDS: REMOVE OLD PATCH T-DERMAL SCH (09:00)
[2018-02-23] MEDS: DOCUSATE SODIUM 50 MG/SENNA 8.6 MG TAB PO SCH ×2 (09:00→21:12)
[2018-02-23] MEDS ORDERED: SODIUM CHLORIDE 0.9% IV ONE (09:00)
[2018-02-23] MEDS: PANTOPRAZOLE SOD 40 MG DELAYED RELEASE TAB PO SCH (09:00)
[2018-02-23] MEDS ORDERED: TRANEXAMIC ACID IV ONE (09:00)
[2018-02-23] MEDS: NICOTINE 14 MG/24 HR PATCH T-DERMAL SCH (09:00)
[2018-02-23] MEDS: SODIUM CHLORIDE 0.9% FLUSH 10 ML FLUSH IV FLUSH SCH ×2 (09:00→21:17)
[2018-02-23] MEDS: LISINOPRIL 10 MG TAB PO SCH (09:00)
--- NOTE | 2018-02-23 09:00 | MB ---
cc: Joel Ashton MD DATE: 02/21/2018 HISTORY OF PRESENT ILLNESS: The patient is a friendly right hand dominant 72-year-old male who came to the emergency room last night after falling while he was playing ball with his granddaughter. He has a left femur fracture as well as an avulsion fracture of the left triquetral bone. He was splinted. Dr. Lee has seen and is planning surgical repair of left femur. PAST MEDICAL HISTORY: Shoulder replacement, left knee replacement, pacemaker placement. PAST MEDICAL HISTORY: Coronary artery disease, GERD, hypertension. MEDICATIONS: 1. Plavix. 2. Nexium. 3. Aspirin. 4. Lisinopril. 5. Simvastatin. 6. Metoprolol. ALLERGIES: PENICILLIN AND POSSIBLY ADHESIVES. SOCIAL HISTORY: He smokes 1 1/2 pack per day. FAMILY HISTORY: Noncontributory. REVIEW OF SYSTEMS: Negative except as stated in the HPI. The patient does not complain of any headaches or blurry or double vision. He does not complain of any cough and wheeze or shortness of breath, not complaining of any chest pain or palpitations, not complaining of any nausea, vomiting or abdominal pain. He is not complaining of any frequency, urgency or burning with urination. He is not complaining of any spine, neck or back pain. He is not complaining of any lower extremity pain, weakness or swelling. He is not complaining of any easy bruising. He is not complaining of any night sweats, fevers or chills. He is not complaining of any anxiety, depression, or suicidal ideations. IMAGING STUDIES: X-rays of the left wrist were performed and reviewed and reveal probable dorsal triquetral avulsion fracture only seen on the lateral view. PHYSICAL EXAMINATION: GENERAL: He is a well-developed, well-nourished male, in no apparent distress, awake, alert and oriented x3. VITAL SIGNS: Temperature is 97.3, blood pressure 142/75, heart rate 59, respiratory rate 17, pulse oximetry 93% on room air. HEENT: Normocephalic, atraumatic. His respiratory effort is normal. Pupils equal, round he is very pleasant. SKIN: Normal in its appearance and temperature: EXTREMITIES: Examination of the left wrist reveals a splint, which I removed for examination. He has full active range of motion. There is no tenderness over the first dorsal compartment. There is no tenderness over the scaphoid. There is mild tenderness over the dorsal aspect of the wrist and point tenderness over the dorsal aspect of the triquetrum. There is no laceration. All musculotendinous units are intact. There is no gross deformity. Negative foveal sign, negative scaphoid shift test. He does appear to be slightly ulnar positive on his x-rays. Capillary refill is less than 2 seconds in all fingertips. IMPRESSION: 1. Left wrist pain. 2. Left triquetral avulsion fracture. PLAN: I have placed him into the volar immobilizing splint. I recommend he keep that intact for the next 1-2 weeks. Once it feels better, he can remove it to wash and dry his hands. Then we can switch him to a removable splint, but there is no surgical treatment needed. The patient said he will be going back home, which is on the [facility] and he will followup with his primary doctor for this, but I will follow along with him while he is here. MD EDER Noel/ , 05:20 PM , 05:40 PM
[2018-02-23] MEDS ORDERED: HYDR-3583 PO (09:20)
[2018-02-23] MEDS ORDERED: WALKER WHEELS/F1 MIS (09:20)
[2018-02-23] MEDS ORDERED: VITA500012 PO (09:20)
[2018-02-23] MEDS ORDERED: CALCTAB19 PO (09:20)
--- NOTE | 2018-02-23 09:23 | PD.ORT.PN ---
Subjective Subjective Remarks Playing the yard with granddaughter when he had a trip and fall. He had immediate pain and discomfort to the left hip and was unable to ambulate. He also complains of left hand pain. Objective Vitals Vital Signs Date Time Temp Pulse Resp B/P (MAP) Pulse Ox O2 Delivery O2 Flow Rate FiO2 02/23/18 08:00 97.9 68 16 134/68 (90) 93 02/23/18 00:00 98.1 74 20 158/75 (102) 96 02/22/18 20:00 98.1 61 20 169/77 (107) 98 02/22/18 16:00 97.6 84 17 147/68 (94) 93 02/22/18 12:00 97.1 61 17 170/77 (108) 94 I/O 02/22/18 02/22/18 02/22/18 02/23/18 02/23/18 02/23/18 07:00 15:00 23:00 07:00 15:00 23:00 Intake Total 760 ml 2880 ml Output Total 1000 ml 280 ml 500 ml Balance -240 ml 2600 ml -500 ml Intake Oral 760 ml 2880 ml Output Urine Total 1000 ml 280 ml 500 ml # Voids 6 # Bowel Movements 0 Result Diagram: 02/21/18 0652 02/21/18 0525 Objective Remarks Awake, alert, no acute distress Left lower externally: Positive logroll with discomfort with any range of motion. Neurovascularly intact distally. Negative Homans. Brisk cap refill. Left upper extremity no pain with shoulder elbow range of motion. Short arm volar wrist splint in place. Intact sensation of the radial ulnar median nerve distributions good capillary refills Assessment & Plan Assessment and Plan Displaced left femoral neck subcapital fracture N.p.o. Surgery this morning for left hip hemiarthroplasty Sign consents Plan for discharge to rehab Platform walker due to avulsion of carpal bone possibly Raudel White Jr. Feb 23, 2018 09:22
--- NOTE | 2018-02-23 09:39 | PD.OP ---
cc: Charlie Goins MD Operative Report Date of Surgery: Feb 23, 2018 Preoperative Diagnosis: Displaced left femoral neck fracture Postoperative Diagnosis: Procedure: Left hip bipolar hemiarthroplasty Anesthesia: General Surgeon: Charlie Goins Beam Press Operator(s): LISA Dee PA-C The surgical procedure was assisted by my physician preschool assistant principal. My P.A. presence was necessary throughout this case for the manipulation and positioning of the surgical extremity. My P.A. was assisting me throughout the duration of this procedure. The skill set of a physician preschool assistant principal was medically necessary to complete this procedure. During the surgical case the production technologist was working at the back table and the physician preschool assistant principal was directly assisting me. Operation and Findings: PLAN OF ACTIVITY Weight bear as tolerated. IMPLANTS USED DePuy Corail size [16] stem with size [52] bipolar head and [+1] neck. DETAILS OF PROCEDURE This patient was brought into the operating room and placed on the OR table. The patient was given anesthesia. The patient received IV antibiotics. The patient was then placed in lateral decubitus position. The hip and leg were prepped with alcohol, followed by Hibiclens and draped in a usual sterile fashion. Clean air was used for this procedure. Time out procedure was performed. The procedure began with a 5 inch incision over the posterolateral hip. The subcutaneous tissue was dissected with the Bovie. The iliotibial band were split in line with fibers. The Charnley retractor was placed. The piriformis and external rotators were released from the femur and tagged with a #1 Vicryl suture. The capsule is now incised and tagged with #1 Vicryl. The femoral neck fracture was now visualized. A corkscrew was now used to remove the femoral head. The femoral head was sized and measured. Soft tissue was now protected. The hip skid was placed underneath the femoral neck. An oscillating saw was used to make a femoral neck cut. At this point attention was turned to preparation of the proximal femur. A box osteotome was used to remove the lateral cortex of the femoral neck. The T- handle reamer was used to open the femoral canal. Next, the canal was broached. A lateralizing reamer was used to help lateralize the prosthesis. At this point a trial head and neck were placed. The hip was reduced. The patient was found to have excellent stability with good range of motion. Trial components were removed. Soft tissue and bone were thoroughly irrigated. A Corail stem was now opened. The stem was now impacted into the proximal femur. Care was taken to keep appropriate anteversion. The head and neck were now impacted onto the stem. The hip was again reduced. The hip was found to have good range of motion and good stability. Leg lengths were clinically equal. The wound was thoroughly irrigated. The capsule, piriformis and iliotibial band were closed with #1 Vicryl. Subcutaneous tissue was closed with 3-0 Vicryl. The skin was closed with tomás. A sterile dressing was applied with Primapore. The patient was placed into a knee immobilizer. The patient was awakened and transferred to the recovery room in stable condition. Needle and sponge counts were correct. Charlie Goins MD Feb 23, 2018 09:39
[2018-02-23] MEDS ORDERED: Post-op Orders (for Pharmacy) XX ONE (09:45)
[2018-02-23] MEDS ORDERED: ceFAZolin 2 GM PREMIX 50 ML IV SCH (09:45)
[2018-02-23] MEDS ORDERED: DO NOT ADM ANY ANTICOAGULANT DRUGS PRN (10:13)
[2018-02-23] MEDS ORDERED: LORazepam 2 MG/ML VIAL ONE (10:30)
[2018-02-23] MEDS ORDERED: HALOPERIDOL LACTATE 5 MG/ML AMP ONE ×2 (10:33→10:48)
[2018-02-23] MEDS ORDERED: MIDAZOLAM HCL 2 MG/2 ML VIAL ONE (10:41)
--- NOTE | 2018-02-23 11:26 | RADRPT ---
EXAM DATE/TIME: 02/23/2018 10:15 [place] COMPARISON: CT HIP LEFT W/O CONTRAST, February 21, 2018, 7:31. HIP LEFT (AP&LAT 2/3VWS) W AP PELVIS, February 20, 2018 , 21:32. INDICATIONS : Post op left hip surgery. MEDICAL HISTORY : Hypertension. SURGICAL HISTORY : None. ENCOUNTER: Initial ACUITY: 1 day PAIN SCORE: Non-responsive. LOCATION: Left hip and pelvis FINDINGS: Examination of the left hip was performed with AP Pelvis. Previously seen subcapital fracture of the left femur has been repaired with total hip arthroplasty. Both the acetabular and femoral components are appropriately positioned. Osseous structures are intact. CONCLUSION: Appropriate postoperative appearance of the left total hip arthroplasty for subcapital femoral n fabian fracture. Oscar Deng MD on February 23, 2018 at 11:21 Board Certified Radiologist. This report was verified electronically.
[2018-02-23] MEDS ORDERED: *morphine SULFATE 4 MG/ML PERIprocedure ONLY ONE (12:09)
[2018-02-23] MEDS ORDERED: ERGOCALCIFEROL (VIT D2) 50,000 UNIT CAP PO ONE (13:00)
[2018-02-23] MEDS: CLINDAMYCIN 600 MG/NS 100 ML IV SCH ×2 (16:00)
--- NOTE | 2018-02-23 18:09 | HHI.PR ---
Subjective Remarks The pt was seen in the PACU. Per nursing he was quite disoriented following surgery. He was calm and able to tell me what month it was and he knew where he was. He denied much pain and was breathing comfortably. Objective Vitals Vital Signs Date Time Temp Pulse Resp B/P (MAP) Pulse Ox O2 Delivery O2 Flow Rate FiO2 02/23/18 10:06 97.6 67 20 137/81 (99) 95 Nasal Cannula 3 02/23/18 08:00 97.9 68 16 134/68 (90) 93 02/23/18 00:00 98.1 74 20 158/75 (102) 96 02/22/18 20:00 98.1 61 20 169/77 (107) 98 I/O 02/22/18 02/22/18 02/22/18 02/23/18 02/23/18 02/23/18 07:00 15:00 23:00 07:00 15:00 23:00 Intake Total 760 ml 2880 ml 500 ml Output Total 1000 ml 280 ml 500 ml 30 ml Balance -240 ml 2600 ml -500 ml 470 ml Intake Oral 760 ml 2880 ml Other 500 ml Output Urine Total 1000 ml 280 ml 500 ml Estimated Blood Loss 30 ml # Voids 6 # Bowel Movements 0 Result Diagram: 02/21/18 0652 02/21/18 0525 Imaging Last Impressions Hip and Pelvis X-Ray 02/23/18 0937 Signed Impressions: Service Date/Time: Friday, February 23, 2018 10:15 - CONCLUSION: Appropriate postoperative appearance of the left total hip arthroplasty for subcapital femoral neck fracture. Oscar Deng MD Lower Extremity CT 02/21/18 0000 Signed Impressions: Service Date/Time: Wednesday, February 21, 2018 07:31 - CONCLUSION: Femoral neck fracture on the left. No other fractures are appreciated in spite of the deformity.. Bud Chung MD FACR Chest X-Ray 02/20/182212 Signed Impressions: Service Date/Time: Tuesday, February 20, 2018 22:18 - CONCLUSION: 1. No acute findings. Pacer leads in right atrium and right ventricle. Kenji Ace MD Wrist X-Ray 02/20/182120 Signed Impressions: Service Date/Time: Tuesday, February 20, 2018 21:32 - CONCLUSION: 1. Probable dorsal triquetral avulsion fracture only seen on the lateral view. Kenji Ace MD Objective Remarks GENERAL: This is a well-nourished, well-developed patient, in no apparent distress. SKIN: No rashes, ecchymoses or lesions. Cool and dry. HEAD: Atraumatic. Normocephalic. EYES: Pupils equal round and reactive. ENT: Nose without bleeding, purulent drainage or septal hematoma. CARDIOVASCULAR: Regular rate and rhythm without murmurs, gallops, or rubs. RESPIRATORY: Clear to auscultation. Breath sounds equal bilaterally. No wheezes , rales, or rhonchi. GASTROINTESTINAL: Abdomen soft, non-tender, nondistended. MUSCULOSKELETAL: Left arm bandaged. No lower extremity edema. Left leg in splint. NEUROLOGICAL: Awake and alert. Motor and sensory grossly within normal limits. Normal speech. Procedures Left hip hemiarthroplasty Medications and IVs Current Medications Medications (Trade) Dose Ordered Sig/Reyes Route Start Time Stop Time Status Last Admin (NS Flush) 2 ml UNSCH PRN IV FLUSH 02/20/18 22:30 02/21/18 02:28 (NS Flush) 2 ml BID IV FLUSH 02/21/18 09:00 02/22/18 20:36 (Zofran Inj) 4 mg Q6H PRN IVP 02/20/18 22:30 (Tylenol) 650 mg Q6H PRN PO 02/20/18 22:30 (Melody-Colace) 1 tab BID PO 02/21/18 09:00 02/22/18 20:33 (Milk Of Magnesia Liq) 30 ml Q12H PRN PO 02/20/18 22:30 (Senokot) 17.2 mg Q12H PRN PO 02/20/18 22:30 (Dulcolax Supp) 10 mg DAILY PRN RECTAL 02/20/18 22:30 (Lactulose Liq) 30 ml DAILY PRN PO 02/20/18 22:30 (Lopressor) 50 mg DAILY PO 02/21/18 09:00 02/23/18 07:11 (Protonix) 40 mg DAILY PO 02/21/18 09:00 02/22/18 09:18 (Pravachol) 80 mg HS PO 02/21/18 21:00 02/22/18 20:33 (Prinivil) 15 mg DAILY PO 02/21/18 09:00 02/22/18 09:19 (Habitrol 14 Mg Patch.24 Hr) 1 patch DAILY T-DERMAL 02/21/18 11:45 02/22/18 09:18 Miscellaneous Information 1 DAILY T-DERMAL 02/22/18 09:00 02/22/18 09:20 (Morphine Inj) 4 mg Q4H PRN IV PUSH 02/21/18 17:30 02/22/18 17:25 Lactated Ringer's 1,000 ml @ 30 mls/hr Q24H PRN IV 02/22/18 18:15 02/25/18 18:14 Sodium Chloride 500 ml @ 30 mls/hr [id number] PRN IV 02/22/18 18:15 02/25/18 18:14 (Lopressor) 25 mg PLUCK SEPARATOR PRN PO 02/22/18 18:15 02/25/18 18:14 (Betadine 5% Antisepsis Kit) 1 applic PLUCK SEPARATOR PRN EACH NARE 02/22/18 18:15 02/25/18 18:14 (Chlorhexidine 2% Cloth) 3 pack PLUCK SEPARATOR PRN TOPICAL 02/22/18 18:15 02/25/18 18:14 (NovoLIN R INJ) See Protocol Table ... PLUCK SEPARATOR PRN SQ 02/22/18 18:15 02/25/18 18:14 (Lovenox Inj) 30 mg Q24H SQ 02/24/18 09:15 ([place] 7.5-325 Mg) 1 tab Q3H PRN PO 02/23/18 09:45 (Vitamin D3) 5,000 units DAILY PO 02/24/18 09:00 Miscellaneous Information ALL NURSING DEPARTME... UNSCH PRN .XX 02/23/18 10:13 02/24/18 10:12 Clindamycin Phosphate 600 mg/ Sodium Chloride 104 ml @ 208 mls/hr Q8H IV 02/23/18 16:00 02/24/18 08:29 02/23/18 16:00 A/P Problem List: (1) Fracture of femoral neck, left ICD Code: S72.002A - Fracture of unspecified part of neck of left femur, initial encounter for closed fracture Status: Acute (2) Fracture of left carpal bone ICD Code: S62.102A - Fracture of unspecified carpal bone, left wrist, initial encounter for closed fracture Status: Acute Assessment and Plan Left femoral neck fracture and left wrist fracture Hip x-ray reviewed and showed mildly displaced left femoral neck fracture. Confirmed on CT. Wrist x-ray reviewed and shows possible dorsal triquetral avulsion fracture. Orthopedic and hand surgery consults appreciated. S/p left hemiarthroplasty 02/23. - weight-bearing, pain control and anticoagulation per orthopedic surgery. - incentive spirometry. - rehab efforts. Hypertension Relatively well controlled. - Resumed home medications metoprolol and lisinopril. - pain control. Symptomatic bradycardia Status post pacemaker. - Monitor telemetry. - Hold Plavix and aspirin until cleared by surgery. Hyperglycemia A1c 5.7%. - monitor as needed. Disorientation S/t surgery and anesthesia. Improving. - frequent reorientation. - avoid sedating meds. DVT prophylaxis: Per surgery Discharge Planning Await ortho clearance Problem Qualifiers (1) Fracture of femoral neck, left: Qualified Codes: S72.002A - Fracture of unspecified part of neck of left femur , initial encounter for closed fracture (2) Fracture of left carpal bone: Qualified Codes: S62.115A - Nondisplaced fracture of triquetrum [cuneiform] bone, left wrist, initial encounter for closed fracture Raudel Scott DO Feb 23, 2018 18:09
[2018-02-23 20:00] VITALS: BP 145/65; PULSE 71; RESP 17; TEMP 96; O2SAT 94
[2018-02-23] MEDS: PRAVASTATIN SOD 80 MG TAB PO SCH (21:13)
[2018-02-23] MEDS: ACETAMINOPHEN/HYDROcodone 325 MG/7.5 MG TAB PO PRN (21:17)
[2018-02-24] VITALS (7 sets, daily range): BP systolic 126–146; BP diastolic 61–78; PULSE 65–91; RESP 16–19; TEMP 95–97.8; O2SAT 93–95
[2018-02-24] MEDS: CLINDAMYCIN 600 MG/NS 100 ML IV SCH ×4 (01:08→08:32)
[2018-02-24 06:18] LABS: HEMATOCRIT 38.7 % (39.0-51.0); HEMOGLOBIN 13.3 GM/DL (13.0-17.0)
[2018-02-24] MEDS: ACETAMINOPHEN/HYDROcodone 325 MG/7.5 MG TAB PO PRN ×3 (08:14→22:23)
[2018-02-24] MEDS: LISINOPRIL 10 MG TAB PO SCH (08:29)
[2018-02-24] MEDS: PANTOPRAZOLE SOD 40 MG DELAYED RELEASE TAB PO SCH (08:30)
[2018-02-24] MEDS: METOPROLOL TARTRATE 50 MG TAB PO SCH (08:30)
[2018-02-24] MEDS: CHOLECALCIFEROL (VIT D3) 5000 UNIT CAP PO SCH (08:30)
[2018-02-24] MEDS: DOCUSATE SODIUM 50 MG/SENNA 8.6 MG TAB PO SCH ×2 (08:30→21:00)
[2018-02-24] MEDS: NICOTINE 14 MG/24 HR PATCH T-DERMAL SCH (08:31)
[2018-02-24] MEDS: REMOVE OLD PATCH T-DERMAL SCH (08:32)
[2018-02-24] MEDS: SODIUM CHLORIDE 0.9% FLUSH 10 ML FLUSH IV FLUSH SCH ×2 (08:33→21:00)
[2018-02-24] MEDS: ENOXAPARIN SODIUM 30 MG/0.3 ML SYRINGE SQ SCH (10:32)
--- NOTE | 2018-02-24 11:52 | HHI.PR ---
Subjective Remarks Follow up left femoral neck fracture, left wrist fracture. Patient reporting constipation. No other complaints at this time. Pain is well controlled. Objective Vitals Vital Signs Date Time Temp Pulse Resp B/P (MAP) Pulse Ox O2 Delivery O2 Flow Rate FiO2 02/24/18 11:32 95 Nasal Cannula 3.00 02/24/18 08:00 97.4 80 19 146/68 (94) 95 02/24/18 00:00 95.0 70 17 130/61 (84) 94 02/23/18 20:00 96.0 71 17 145/65 (91) 94 02/23/18 17:45 97.5 67 20 138/74 (95) 93 Nasal Cannula 3 02/23/18 17:00 67 20 138/74 (95) 93 Nasal Cannula 3 02/23/18 16:00 60 20 137/77 (97) 93 Nasal Cannula 3 02/23/18 15:00 60 20 139/77 (97) 92 Nasal Cannula 3 02/23/18 14:00 60 20 138/66 (90) 92 Nasal Cannula 3 02/23/18 13:00 62 20 99/60 (73) 92 Nasal Cannula 3 02/23/18 12:00 62 20 102/57 (72) 92 Nasal Cannula 3 02/23/18 11:45 62 20 102/55 (71) 94 Nasal Cannula 3 I/O 02/23/18 02/23/18 02/23/18 02/24/18 02/24/18 02/24/18 07:00 15:00 23:00 07:00 15:00 23:00 Intake Total 500 ml 200 ml 340 ml Output Total 500 ml 80 ml 0 ml 1200 ml Balance -500 ml 420 ml 200 ml -860 ml Intake Oral 200 ml 240 ml IV Total 100 ml Other 500 ml Output Urine Total 500 ml 50 ml 0 ml 1200 ml Estimated Blood Loss 30 ml # Voids 1 # Bowel Movements 0 Result Diagram: 02/24/18 0458 02/21/18 0525 Imaging Last Impressions Hip and Pelvis X-Ray 02/23/18 0937 Signed Impressions: Service Date/Time: Friday, February 23, 2018 10:15 - CONCLUSION: Appropriate postoperative appearance of the left total hip arthroplasty for subcapital femoral neck fracture. Oscar Deng MD Lower Extremity CT 02/21/18 0000 Signed Impressions: Service Date/Time: Wednesday, February 21, 2018 07:31 - CONCLUSION: Femoral neck fracture on the left. No other fractures are appreciated in spite of the deformity.. Bud Chung MD FACR Chest X-Ray 02/20/182212 Signed Impressions: Service Date/Time: Tuesday, February 20, 2018 22:18 - CONCLUSION: 1. No acute findings. Pacer leads in right atrium and right ventricle. Kenji Ace MD Wrist X-Ray 02/20/182120 Signed Impressions: Service Date/Time: Tuesday, February 20, 2018 21:32 - CONCLUSION: 1. Probable dorsal triquetral avulsion fracture only seen on the lateral view. Kenji Ace MD Objective Remarks General: No acute distress. Ambulating with a walker. Heart: Regular rate and rhythm. No murmur. Lungs: Clear to auscultation bilaterally. No wheezes, rales, or rhonchi. Breathing is nonlabored. Abdomen: Soft, nontender, nondistended. Extremities: No lower extremity edema. Left upper extremity in a splint. Psych: Alert and oriented. Neuro: Normal speech. No focal deficits noted. Procedures Left hip hemiarthroplasty Urinary Catheter: No Vascular Central Line Catheter: No A/P Problem List: (1) Fracture of femoral neck, left ICD Code: S72.002A - Fracture of unspecified part of neck of left femur, initial encounter for closed fracture Status: Acute (2) Fracture of left carpal bone ICD Code: S62.102A - Fracture of unspecified carpal bone, left wrist, initial encounter for closed fracture Status: Acute Assessment and Plan 1. Left femoral neck fracture: Status post left hip hemiarthroplasty on . Management per orthopedic surgery. Continue pain control, bowel regimen. 2. Left wrist dorsal triquetral avulsion fracture: Appreciate hand surgery recommendations. Nonoperative treatment at this time. 3. Hypertension: Continue metoprolol, lisinopril. 4. Symptomatic bradycardia: Status post pacemaker placement. Monitor on telemetry. Plavix and aspirin on hold until cleared by surgery. 5. Constipation: Bowel regimen. 6. DVT prophylaxis: Lovenox. Discharge Planning Pending clearance by orthopedic surgery. Problem Qualifiers (1) Fracture of femoral neck, left: Qualified Codes: S72.002A - Fracture of unspecified part of neck of left femur , initial encounter for closed fracture (2) Fracture of left carpal bone: Qualified Codes: S62.115A - Nondisplaced fracture of triquetrum [cuneiform] bone, left wrist, initial encounter for closed fracture Duy Odell MD Feb 24, 2018 11:52
[2018-02-24] MEDS: PRAVASTATIN SOD 80 MG TAB PO SCH (22:23)
[2018-02-25] VITALS: BP 105/62; PULSE 94; RESP 18; TEMP 97; O2SAT 93
--- NOTE | 2018-02-25 07:36 | PD.ORT.PN ---
Subjective Subjective Remarks Pain controlled and looking to be discharged home Objective Vitals Vital Signs Date Time Temp Pulse Resp B/P (MAP) Pulse Ox O2 Delivery O2 Flow Rate FiO2 02/25/18 00:00 97.0 94 18 105/62 (76) 93 02/24/18 20:00 97.8 91 18 141/78 (99) 93 02/24/18 18:08 93 Nasal Cannula 2.00 02/24/18 16:00 97.3 65 16 127/77 (94) 93 02/24/18 12:00 97.2 78 17 126/65 (85) 94 02/24/18 11:32 95 Nasal Cannula 3.00 02/24/18 09:14 18 02/24/18 08:00 97.4 80 19 146/68 (94) 95 I/O 02/24/18 02/24/18 02/24/18 02/25/18 02/25/18 02/25/18 07:00 15:00 23:00 07:00 15:00 23:00 Intake Total 340 ml 500 ml Output Total 1200 ml 175 ml Balance -860 ml 325 ml Intake Oral 240 ml 500 ml IV Total 100 ml Output Urine Total 1200 ml 175 ml # Voids 5 # Bowel Movements 1 Result Diagram: 02/24/18 0458 02/21/18 0525 Objective Remarks Awake, alert, no acute distress Left lower externally: Clean dry dressings intact. Mild swelling. Distally intact sensation and good capillary refills. Active dorsiflexion and plantarflexion of foot Left upper extremity no pain with shoulder elbow range of motion. Short arm volar wrist splint in place. Intact sensation of the radial ulnar median nerve distributions good capillary refills Assessment & Plan Assessment and Plan Left hip hemiarthroplasty POD 2 Weightbearing as tolerated left lower extremity with posterior hip precautions Dry dressings Lovenox Platform walker due to avulsion of carpal bone possibly triquetrum Plan discharged home with home health care Follow up with orthopedic in 2 weeks at home Raudel Urena Jr. Feb 25, 2018 07:36
--- NOTE | 2018-02-25 07:37 | HHI.FF ---
Face to Face Verification Diagnosis: (1) Fracture of femoral neck, left (2) Fracture of left carpal bone Physical Therapy Gait training, Safety evaluation Hip: Total hip, Protocol: Left, Posterior hip precautions Left LE Weight Bearing: WB as tolerated S/P Spinal Fusion: Gait training with walker (Platform walker) Nursing Dressing Changes: Coverderm/Primapore (Every other day) I have seen patient Pillo Flores on 02/25/18. My clinical findings support the need for the requested home health care services because: Limited ability to care for self I certify that my clinical findings support that this patient is homebound because: Unsteady gait/balance Raudel Urena Jr. Feb 25, 2018 07:37
[2018-02-25] MEDS ORDERED: ADJUSTABLE COMM1 MIS (07:38)
[2018-02-25 08:00] VITALS: BP 142/65; PULSE 88; RESP 17; TEMP 97.3; O2SAT 96
[2018-02-25] MEDS: NICOTINE 14 MG/24 HR PATCH T-DERMAL SCH (08:53)
[2018-02-25] MEDS: REMOVE OLD PATCH T-DERMAL SCH (08:53)
[2018-02-25] MEDS: METOPROLOL TARTRATE 50 MG TAB PO SCH (08:55)
[2018-02-25] MEDS: PANTOPRAZOLE SOD 40 MG DELAYED RELEASE TAB PO SCH (08:55)
[2018-02-25] MEDS: DOCUSATE SODIUM 50 MG/SENNA 8.6 MG TAB PO SCH (08:56)
[2018-02-25] MEDS: CHOLECALCIFEROL (VIT D3) 5000 UNIT CAP PO SCH (08:56)
[2018-02-25] MEDS: LISINOPRIL 10 MG TAB PO SCH (08:56)
[2018-02-25] MEDS: ENOXAPARIN SODIUM 30 MG/0.3 ML SYRINGE SQ SCH (08:56)
[2018-02-25] MEDS: SODIUM CHLORIDE 0.9% FLUSH 10 ML FLUSH IV FLUSH SCH (09:00)
--- NOTE | 2018-02-25 10:46 | HHI.DCPOC ---
Discharge Care Plan Diagnosis: (1) Hypertension (2) Symptomatic bradycardia (3) Constipation (4) Fracture of left carpal bone (5) Fracture of femoral neck, left Goals to Promote Your Health * To prevent worsening of your condition and complications * To maintain your health at the optimal level Directions to Meet Your Goals Take your medications as prescribed Follow your dietary instruction Follow activity as directed Keep your appointments as scheduled Take your immunizations and boosters as scheduled If your symptoms worsen call your PCP, if no PCP go to Urgent Care Center or Emergency Room Smoking is Dangerous to Your Health. Avoid second hand smoke Call the 24-hour hour crisis hotline for domestic abuse at Duy Odell MD Feb 25, 2018 10:46
--- NOTE | 2018-02-25 10:48 | HHI.DS ---
Discharge Summary Admission Date Feb 20, 2018 at 22:20 Discharge Date: Feb 25, 2018 Admitting Diagnosis Fracture left femoral neck. Evulsion fracture left carpal bone (1) Fracture of femoral neck, left ICD Code: S72.002A - Fracture of unspecified part of neck of left femur, initial encounter for closed fracture Status: Acute (2) Fracture of left carpal bone ICD Code: S62.102A - Fracture of unspecified carpal bone, left wrist, initial encounter for closed fracture Status: Acute (3) Constipation ICD Code: K59.00 - Constipation, unspecified (4) Hypertension ICD Code: I10 - Essential (primary) hypertension (5) Symptomatic bradycardia ICD Code: R00.1 - Bradycardia, unspecified Procedures Left hip hemiarthroplasty Brief History - From Admission 72-year-old male with a history of hyperlipidemia, GERD, bradycardia status post pacemaker and hypertension presented to the ED with complaints of left hip and left wrist pain status post fall. He states he was playing outside with his granddaughter and he tripped and fell landing on his left hip and wrist. He states the hip and wrist pain is throbbing, intermittent, 8/10, no radiation or associated symptoms, worse with movement better with morphine. He denies any chest pain, sob, fever or chills. CBC/BMP: 02/24/18 0458 02/21/18 0525 Significant Findings Laboratory Tests Test 02/22/18 12:18 02/24/18 04:58 Hematocrit 38.7 % (39.0-51.0) 25-Hydroxy Vitamin D Total 15.0 ng/ML (30-100) Imaging Last Impressions Hip and Pelvis X-Ray 02/23/18 0937 Signed Impressions: Service Date/Time: Friday, February 23, 2018 10:15 - CONCLUSION: Appropriate postoperative appearance of the left total hip arthroplasty for subcapital femoral neck fracture. Oscar Deng MD Lower Extremity CT 02/21/18 0000 Signed Impressions: Service Date/Time: Wednesday, February 21, 2018 07:31 - CONCLUSION: Femoral neck fracture on the left. No other fractures are appreciated in spite of the deformity.. Bud Chung MD FACR Chest X-Ray 02/20/182212 Signed Impressions: Service Date/Time: Tuesday, February 20, 2018 22:18 - CONCLUSION: 1. No acute findings. Pacer leads in right atrium and right ventricle. Kenji Ace MD Wrist X-Ray 02/20/182120 Signed Impressions: Service Date/Time: Tuesday, February 20, 2018 21:32 - CONCLUSION: 1. Probable dorsal triquetral avulsion fracture only seen on the lateral view. Kenji Ace MD PE at Discharge General: No acute distress. Ambulating with a walker. Heart: Regular rate and rhythm. No murmur. Lungs: Clear to auscultation bilaterally. No wheezes, rales, or rhonchi. Breathing is nonlabored. Abdomen: Soft, nontender, nondistended. Extremities: No lower extremity edema. Left upper extremity in a splint. Psych: Alert and oriented. Neuro: Normal speech. No focal deficits noted. Pt update on day of discharge Patient has no complaints at this time. Pain is well controlled. Denies chest pain, dyspnea, nausea, vomiting. He wants to go home today. Hospital Course Patient was admitted for further management of left femoral neck fracture and left wrist fracture. Orthopedic surgery and hand surgery consulted. Hand surgery recommended nonoperative treatment and a splint was placed on the left wrist. Orthopedic surgery performed left hip bipolar hemiarthroplasty on . Routine postoperative care was continued with physical therapy and Occupational Therapy in addition to pain control and bowel regimen. Patient did develop constipation, which improved with medications. He was cleared for discharge by orthopedic surgery and felt to be stable for discharge home with home health care. Pt Condition on Discharge: Stable Discharge Disposition: Disch w/ Home Health Serv Discharge Time: > 30 minutes Discharge Instructions DIET: Follow Instructions for: Diabetic Diet Activities you can perform: See Additionl Instruction Other Activity Instructions: Weightbearing as tolerated left lower extremity with posterior hip precautions Follow up Referrals: Hand Surgery - 10 Days Orthopedics - 2 Weeks @ [facility] with Charlie Ballesteros MD PCP Follow-up - 1 Week New Medications: Adjustable Commode 3-in-1 (Adjustable Commode 3-in-1) 1 Mis Mis EA .XX DIRECTED, #1 Calcium Carbonate-Vitamin D (Calcium 600+D 200) 600-200 Mg-Unit Tab 1 TAB PO BID for Nutritional Supplement, #90 TAB 0 Refills Ergocalciferol (Ergocalciferol) 50,000 Unit Cap 20888 UNITS PO Q7D for Nutritional Supplement, #8 CAP Hydrocodone-Acetaminophen (Hydrocodone-Acetaminophen) 10-325 mg Tab 1 TAB PO Q4H PRN for PAIN, #50 TAB 0 Refills Walker with Front Wheels (Walker with Front Wheels) 1 Mis Mis EA .XX DIRECTED, #1 0 Refills Continued Medications: Aspirin (Aspirin) 81 Mg Chew 81 MG CHEW DAILY, TAB 0 Refills Clopidogrel (Plavix) 75 Mg Tab 75 MG PO DAILY for Blood Clot Prevention, #30 TAB [address] (Nexium) 40 Mg Capdr 40 MG PO DAILY, CAP 0 Refills Lisinopril (Lisinopril) 10 Mg Tab 15 MG PO DAILY, #30 TAB 0 Refills Metoprolol Tartrate (Metoprolol Tartrate) 50 Mg Tab 50 MG PO DIRECTED, #30 TAB 0 Refills Simvastatin (Simvastatin) 40 Mg Tab 40 MG PO HS for Cholesterol Management, #30 TAB 0 Refills Duy Odell MD Feb 25, 2018 10:48
== END 2018-02-25 11:27 | disposition home health service (06) | DRG 470 ==
LOC: PHEFT 20:30 → PHEDA 22:20 → N07A 02-21 01:50
PROVIDERS: ADMIT Family Medicine; ATTEND Family Medicine
PROC: 2W3FX1Z Immobilization of Left Hand using Splint (ICD-10-PCS; 2018-02-21)
PROC: 0SRS0JZ Replacement of Left Hip Joint, Femoral Surface with Synthetic Substitute, Open Approach (ICD-10-PCS; principal; 2018-02-23 08:30)
DX: S72.012A Unspecified intracapsular fracture of left femur, initial encounter for closed fracture (principal); R00.1 Bradycardia, unspecified; I10 Essential (primary) hypertension; E78.5 Hyperlipidemia, unspecified; S62.112A Displaced fracture of triquetrum [cuneiform] bone, left wrist, initial encounter for closed fracture; K21.9 Gastro-esophageal reflux disease without esophagitis; Z95.0 Presence of cardiac pacemaker; Z88.0 Allergy status to penicillin; F17.210 Nicotine dependence, cigarettes, uncomplicated; R41.0 Disorientation, unspecified; R73.9 Hyperglycemia, unspecified; I25.10 Atherosclerotic heart disease of native coronary artery without angina pectoris; K59.00 Constipation, unspecified; Z96.619 Presence of unspecified artificial shoulder joint; Z96.652 Presence of left artificial knee joint; W01.0XXA Fall on same level from slipping, tripping and stumbling without subsequent striking against object, initial encounter; Z79.02 Long term (current) use of antithrombotics/antiplatelets; Z79.82 Long term (current) use of aspirin
CPT/HCPCS: 71045; 73110; 73502; 73700; 80053; 81001; 82306; 82948; 83036; 85014; 85018; 85025; 85610; 85730; 93005; 94150; C1776; J1580; J1630; J1650; J2060; J2250; J2270; J2405; J3010; J3370; J7030; J7050; L1830